=== PATIENT | female | born 1990 | race Caucasian/White ===

== ENCOUNTER 2021-02-28 10:11 | Emergency (ER) | payer OTHER ==
[2021-02-28 11:40] VITALS: BP 117/81; PULSE 79; RESP 18; TEMP 98.2
--- NOTE | 2021-02-28 12:59 | ED ---
General Adult HPI - General Chief complaint: Upper Respiratory Infection Stated complaint: Covid test Time Seen by Provider: 02/28/21 12:58 Source: patient, RN notes reviewed Mode of arrival: ambulatory Limitations: no limitations - History of Present Illness Initial comments: This a 30-year-old female presents emergency from chief complaint of COVID-19 testing. Patient states she was exposed to chronic changes a slight cough. No fevers chills no other associated symptoms no other complaints. - Related Data Home Medications Medication Instructions Recorded Confirmed Pnv,Calcium 72/Iron/Folic Acid 1 tab PO DAILY 05/26/14 09/17/14 [Pnv Plus Multivit Tab] No Known Home Medications 02/21/16 02/21/16 Previous Rx's Medication Instructions Recorded Ibuprofen [Motrin] 600 mg PO Q6HR PRN #30 tab 09/18/14 Allergies Allergy/AdvReac Type Severity Reaction Status Date / Time No Known Allergies Allergy Verified 02/28/21 11:37 Review of Systems ROS Statement: Those systems with pertinent positive or pertinent negative responses have been documented in the HPI. ROS Other: All systems not noted in ROS Statement are negative. Past Medical History Past Medical History: No Reported History Additional Past Medical History / Comment(s): Obstetric history: This is her first and she has had care with me since 12 weeks. A+, abs neg, Rub nonimmune, RPR NR, Hep B neg, normal 1hr GTT and normal anatomy US. GBS neg. History of Any Multi-Drug Resistant Organisms: None Reported Past Surgical History: No Surgical Hx Reported Past Anesthesia/Blood Transfusion Reactions: No Reported Reaction Past Psychological History: No Psychological Hx Reported Smoking Status: Current every day smoker Past Alcohol Use History: None Reported Past Drug Use History: None Reported General Exam Limitations: no limitations General appearance: alert, in no apparent distress Head exam: Present: atraumatic, normocephalic, normal inspection Eye exam: Present: normal appearance, PERRL, EOMI. Absent: scleral icterus, conjunctival injection, periorbital swelling Respiratory exam: Present: normal lung sounds bilaterally. Absent: respiratory distress, wheezes, rales, rhonchi, stridor Cardiovascular Exam: Present: regular rate, normal rhythm, normal heart sounds. Absent: systolic murmur, diastolic murmur, rubs, gallop, clicks Course Vital Signs 02/28/21 02/28/21 11:38 12:57 Temperature 98.2 F Pulse Rate 79 Respiratory 18 18 Rate Blood Pressure 117/81 O2 Sat by Pulse 100 Oximetry Medical Decision Making - Medical Decision Making COVID-19 test is negative. - Lab Data Lab Results 02/28/21 Range/Units 11:40 Coronavirus (PCR) Not Detected (Not Detectd) Disposition Clinical Impression: Encounter for laboratory testing for COVID-19 virus Disposition: HOME SELF-CARE Condition: Stable Additional Instructions: Your COVID-19 test was negative. Please return to the Emergency Department if symptoms worsen or any other concerns. Is patient prescribed a controlled substance at d/c from ED?: No Referrals: None,Stated [Primary Care Provider] - 1-2 days Time of Disposition: 12:59
== END 2021-02-28 13:01 | disposition home or self-care (01) ==
LOC: EC 10:11
DX: Z20.822 Contact with and (suspected) exposure to COVID-19 (principal); F17.200 Nicotine dependence, unspecified, uncomplicated
CPT/HCPCS: 87635; 99283